=== PATIENT | male | born 1965 | race Caucasian/White ===

== ENCOUNTER → 2016-11-13 | Outpatient (CLI) | payer BC ==
[~2016-11-13] MED LIST: GADAVIST IV PRN; OMEG10007 PO; OXYC15TA89 PO; [UNRECOGNIZED DRUG - CODE] PO
--- NOTE | 2016-11-13 09:37 | DIAGNOSTIC IMAGING REPORT ---
MRI OF THE BRAIN WITHOUT AND WITH IV CONTRAST CLINICAL HISTORY: LUNG CA, HX OF BRAIN METS COMPARISON STUDY: 12/17/2013 TECHNIQUE: MRI of the brain was performed from the vertex to the skull base utilizing various T1 and T2 weighted sequences. Following the IV administration of 8 mL of Gadavist contrast, additional enhanced images were obtained. FINDINGS: Sagittal T1, axial diffusion, proton density and T2 weighted axial, coronal FLAIR, and pre and post axial T1-weighted images were acquired. These were supplemented with post gadolinium coronal T1 weighted images. Axial diffusion-weighted images reveal no evidence of acute or subacute infarction. There is no evidence of ventricular dilatation. Proton density T2-weighted and FLAIR images reveal there is been interval resolution of the focus of increased FLAIR signal within the left parietal vertex. There are several new foci of increased FLAIR signal. The most prominent is a 5 mm focus within the left occipital lobe. This demonstrates subtle post gadolinium enhancement. This must therefore be viewed as suspicious for a tiny metastatic focus. There is also an additional equivocal punctate focus of enhancement within the left cerebellar hemisphere. There are no abnormal flow voids. IMPRESSION: 1. New 5 mm focus of increased FLAIR signal within the left occipital lobe. This demonstrates post gadolinium enhancement, and therefore must be viewed as suspicious for a tiny metastatic deposit 2. Equivocal 2 mm focus of enhancement within the left cerebellar hemisphere 3. There are several additional foci of increased FLAIR signal within the white matter which are nonspecific. 4. No evidence of acute or subacute infarction 5. No evidence of hydrocephalus. Electronically signed by: Delbert Arvizu M.D. 11/13/2016 9:35 AM Dictated Date/Time: 11/13/2016 9:20 AM
== END | disposition home or self-care (01) ==
LOC: C.MRI 08:24
PROVIDERS: ATTEND Internal Medicine Hematology & Oncology
DX: C34.90 Malignant neoplasm of unspecified part of unspecified bronchus or lung (principal); C79.31 Secondary malignant neoplasm of brain; R90.82 White matter disease, unspecified

== ENCOUNTER 2017-09-01 03:27 | Inpatient (IN) | payer OTHER, BC ==
[~2017-09-01] VITALS: Ht 172.7 cm; Wt 79.9 kg
[~2017-09-01 03:27] MED LIST changes: -GADAVIST IV PRN
[2017-09-01] MEDS ORDERED: ONDANSETRON INJ 2 MG/ML 2 ML VIAL IV STA (03:43)
[2017-09-01] MEDS ORDERED: SODIUM CHLORIDE 0.9% 1000ML 1,000 ML IV STA (03:43)
[2017-09-01] MEDS ORDERED: HYDROmorphone INJ 1 MG/ML SYR IV STA (03:43)
--- NOTE | 2017-09-01 03:55 | EMERGENCY ROOM VISIT NOTE ---
History Report prepared by Keisha: Lawrence Carrington Under the Supervision of: Dr. Genaro Lucia M.D. First contact with patient: 03:35 Chief Complaint: ABDOMINAL PAIN Stated Complaint: ABDOMEN PAIN History of Present Illness The patient is a 51 year old male who presents to the Emergency Room with complaints of worsening abdominal pain that started five days ago. He rates his discomfort as a 7/10 in severity. The patient reports that he has a history of lung cancer with metastases to his stomach area and liver. He is accompanied by his who states that the patient's last chemotherapy was five days ago. She states that since then he has been feeling ill. The patient states that he has been experiencing abdominal pain and has been constipated. The patient reports that he has also been vomiting. His reports that she believed the patient looked jaundice two days ago. He states that the abdominal pain worsened today, which caused him to report to the ED. He reports that he also has a history of urinary retention, which he had a Tovar catheter placed for. The patient states that his urine has been concentrated for the last week. His states that the patient is also being treated for his history of blood clots in his legs and lungs. The patient states that his legs have been swelling lately, which he has been taking Lovenox for. The patient states that he has recently finished Levaquin for his history of pneumonia. His states that he has been taking Morphine, Oxycodone, Zofran, Ativan, Dexamethasone, and morphine drops. The patient denies a history of kidney stones, falls, injuries, a history of gastric ulcers, and abdominal surgeries. Source of History: patient, spouse/significant other Onset: five days ago Position: abdomen Symptom Intensity: 7/10 Timing: worsening Associated Symptoms: + vomiting, + urinary symptoms Review of Systems See HPI for pertinent positives & negatives. A total of 10 systems reviewed and were otherwise negative. Past Medical & Surgical Medical Problems: (1) Intractable abdominal pain (2) Metastatic lung cancer (metastasis from lung to other site) Family History Patient reports no known family medical history. Social History Smoking Status: Never Smoker Marital Status: Housing Status: lives with family Occupation Status: employed Current/Historical Medications Scheduled Dexamethasone (Decadron), 4 MG PO Q12 Enoxaparin (Lovenox), 80 MG SQ Q12H Morphine Sulfate (Ms Contin), 30 MG PO Q12 Ranitidine Hcl (Zantac), Unknown Dose PO BID Scheduled PRN Lorazepam (Ativan), 0.5 MG PO TID PRN for Nausea Ondansetron Hcl (Zofran), 8 MG PO Q8 PRN for Nausea Oxycodone Ir (Roxicodone Ir), 5 MG PO Q6H PRN for Pain [Morphine Concentrate], 0.25 MG PO Q2H PRN for Pain Allergies Coded Allergies: No Known Allergies (Unverified , 10/11/15) Physical Exam Vital Signs Date Time Temp Pulse Resp B/P (MAP) Pulse Ox O2 Delivery O2 Flow Rate FiO2 09/01/17 06:30 76 13 117/67 92 Nasal Cannula 4.0 09/01/17 06:00 74 14 113/68 94 Nasal Cannula 4.0 09/01/17 05:30 79 15 114/71 94 Nasal Cannula 4.0 09/01/17 05:00 86 19 120/70 95 Nasal Cannula 4.0 09/01/17 04:30 88 16 120/70 95 Nasal Cannula 4.0 09/01/17 04:28 87 17 122/69 94 Nasal Cannula 4.0 09/01/17 03:30 36.5 92 24 120/78 95 Nasal Cannula 4.0 Physical Exam GENERAL: Patient is uncomfortable appearing, malnourished, and in moderate distress. HEENT: No acute trauma, normocephalic atraumatic, mucous membranes moist, no nasal congestion, no scleral icterus. NECK: No stridor, no adenopathy, no meningismus, trachea is midline. LUNGS: No dyspnea. Clear to auscultation and equal bilaterally. No wheeze, no rhonchi. HEART: Regular rate and rhythm. No murmurs, rubs, gallops appreciated. ABDOMEN: Mild abdominal distention, hypoactive bowel sounds, diffuse mild tenderness to all areas. no masses appreciated, no peritonitis. Tovar in place with dark concentrated urine. BACK: No midline tenderness, no CVA tenderness EXTREMITIES: Normal motion all extremities, no cyanosis, bilateral leg swelling and edema. NEUROLOGIC: Alert and oriented, no acute motor or sensory deficits, no focal weakness, cranial nerves grossly intact. SKIN: No rash, no jaundice, no diaphoresis. Medical Decision & Procedures ER Provider Diagnostic Interpretation: Radiology results and stated below per my review and radiologist interpretation: CT ABDOMEN & PELVIS with Contrast: There is study from October 05, 2016 without a prior report. Trace pleural fluid, right great than left. Atelectasis and/or infiltrate. Septal thickening and ground-glass opacity. Correlate for edema. Lung nodules. Innumerable hypodense liver lesions compatible with metastatic disease not seen on the previous. Adenopathy. Small amount of free fluid and body wall edema. Gallbladder appears thick walled though this could be related to periportal edema. No calcified gallstones are seen. Moderate stool burden. Correlate for constipation. No bowel obstruction. The visualized appendix appears unremarkable. Ascites limits evaluation for localized inflammatory process. Recommend and correlation pancreatic enzymes and other labs. Radiologist: Cole Collier M.D. Laboratory Results 09/01/17 03:46 Red Blood Count 4.17, Mean Corpuscular Volume 83.5, Mean Corpuscular Hemoglobin 28.1, Mean Corpuscular Hemoglobin Concent 33.6, Mean Platelet Volume 10.2, Neutrophils (%) (Auto) 84.7, Lymphocytes (%) (Auto) 7.2, Monocytes (%) (Auto) 7.3, Eosinophils (%) (Auto) 0.4, Basophils (%) (Auto) 0.1, Neutrophils # (Auto) 11.67, Lymphocytes # (Auto) 0.99, Monocytes # (Auto) 1.01, Eosinophils # (Auto) 0.05, Basophils # (Auto) 0.01 09/01/17 03:46 Test 09/01/17 00:00 09/01/17 03:46 09/01/17 03:56 09/01/17 04:00 Urine Color DK YELLOW Urine Appearance CLEAR (CLEAR) Urine pH 5.5 (4.5-7.5) Urine Specific [place] 1.045 (1.000-1.030) Urine Protein NEG (NEG) Urine Glucose (UA) NEG (NEG) Urine Ketones NEG (NEG) Urine Occult Blood TRACE (NEG) Urine Nitrite NEG (NEG) Urine Bilirubin NEG (NEG) Urine Urobilinogen POS (NEG) Urine Leukocyte Esterase NEG (NEG) Urine WBC (Auto) 1-5 /hpf (0-5) Urine RBC (Auto) 0-4 /hpf (0-4) Urine Hyaline Casts (Auto) 1-5 /lpf (0-5) Urine Epithelial Cells (Auto) 5-10 /lpf (0-5) Urine Bacteria (Auto) NEG (NEG) White Blood Count 13.77 K/uL (4.8-10.8) Red Blood Count 4.17 M/uL (4.7-6.1) Hemoglobin 11.7 g/dL (14.0-18.0) Hematocrit 34.8 % (42-52) Mean Corpuscular Volume 83.5 fL (80-100) Mean Corpuscular Hemoglobin 28.1 pg (25-34) Mean Corpuscular Hemoglobin Concent 33.6 g/dl (32-36) Platelet Count 185 K/uL (130-400) Mean Platelet Volume 10.2 fL (7.4-10.4) Neutrophils (%) (Auto) 84.7 % Lymphocytes (%) (Auto) 7.2 % Monocytes (%) (Auto) 7.3 % Eosinophils (%) (Auto) 0.4 % Basophils (%) (Auto) 0.1 % Neutrophils # (Auto) 11.67 K/uL (1.4-6.5) Lymphocytes # (Auto) 0.99 K/uL (1.2-3.4) Monocytes # (Auto) 1.01 K/uL (0.11-0.59) Eosinophils # (Auto) 0.05 K/uL (0-0.5) Basophils # (Auto) 0.01 K/uL (0-0.2) RDW Standard Deviation 41.8 fL (36.4-46.3) RDW Coefficient of Variation 13.8 % (11.5-14.5) Immature Granulocyte % (Auto) 0.3 % Immature Granulocyte # (Auto) 0.04 K/uL (0.00-0.02) Prothrombin Time 12.0 SECONDS (9.0-12.0) Prothromb Time International Ratio 1.1 (0.9-1.1) Activated Partial Thromboplast Time 29.4 SECONDS (21.0-31.0) Partial Thromboplastin Ratio 1.1 Est Creatinine Clear Calc Drug Dose 98.3 ml/min Estimated GFR () 116.1 Estimated GFR (Non- 100.2 BUN/Creatinine Ratio 21.8 (10-20) Calcium Level 8.6 mg/dl (8.5-10.1) Magnesium Level 2.4 mg/dl (1.8-2.4) Total Bilirubin 0.7 mg/dl (0.2-1) Direct Bilirubin 0.4 mg/dl (0-0.2) Aspartate Amino Transf (AST/SGOT) 116 U/L (15-37) Alanine Aminotransferase (ALT/SGPT) 132 U/L (12-78) Alkaline Phosphatase 556 U/L (45-117) Total Creatine Kinase 20 U/L (39-308) Total Protein 7.0 gm/dl (6.4-8.2) Albumin 2.4 gm/dl (3.4-5.0) Lipase 105 U/L (73-393) Bedside Lactic Acid Venous 2.06 mmol/L (0.90-1.70) Bedside Hemoglobin 11.6 g/dl (14.0-18.0) Bedside Hematocrit 34 % (42-52) Bedside Sodium 133 mEq/L (135-144) Bedside Potassium 3.8 mEq/L (3.3-5.0) Bedside Chloride 92 mEq/L (101-112) Bedside Total CO2 29 mEq/l (24-31) Anion Gap 16.0 mmol/L (16-25) Bedside Blood Urea Nitrogen 16 mg/dl (7-18) Bedside Creatinine 0.8 mg/dl (0.6-1.3) Bedside Glucose (other) 147 mg/dl (70-99) Bedside Ionized Calcium (Chen) 1.07 mmol/l (1.12-1.32) Laboratory results as reviewed by me. Medications Administered Medications (Trade) Dose Ordered Sig/[facility] Route Start Time Stop Time Status Last Admin Dose Admin Sodium Chloride 1,000 ml @ 999 mls/hr Q1H1M STAT IV 09/01/17 03:43 09/01/17 04:43 DC 09/01/17 03:51 999 MLS/HR Hydromorphone HCl (Dilaudid Inj) 1 mg NOW STAT IV 09/01/17 03:43 09/01/17 03:44 DC 09/01/17 03:59 1 MG Ondansetron HCl (Zofran Inj) 4 mg NOW STAT IV 09/01/17 03:43 09/01/17 03:44 DC 09/01/17 03:58 4 MG ED Course 0336: The patient was evaluated in room A03. A complete history and physical exam was performed. 0343: Ordered Zofran Injection 4 mg Iv, Dilaudid Injection 1 mg IV, Sodium Chloride 1000 ml @ 999 mls/hr IV. 0037:I reevaluated the patient and he is feeling better after medication. 0531: I reevaluated the patient and he reports that he is severely weak. I discussed coming in for better care of fluid overload issues and he agrees. The patient will be further evaluated. 0534: I discussed the patient's case with Dr. Montes, [facility] Hospitalist. He understands the patient's condition and agrees to accept the patient. The patient will be further evaluated. Medical Decision Differential: Bowel Perforation, Cancer Relate Pain, Electrolyte disorder, Dehydration, Sepsis, Ischemic Bowel, Appendicitis, PUD/Gastritis, Biliary Pathology, UTI, Pyelonephritis, Renal Colic, Bowel Obstruction, Aortic Pathology , amongst other pathologies entertained. Pleasant 51 yr old male arrives in quite some distress for evaluation fo diffuse abdominal pain. Patient with known lung CA with mets to brain/liver. 30 day trial chemo at [facility] without success and towards end with DVTs/PEs and Pneumonia. Finished Levaquin for PNA 2 days ago and is currently on lovenox shots. He started different med 1 week ago at [place] with resulted severe vomiting , and increasing abdominal pains. Arrives with significant worsening of pain over night. He is ill appearing and malnurished and clearly uncomfortable. Already trying many PO meds at home without improvement. With Phenergan/ Dilaudid IV here is is feeling somewhat improved but still signficiant weakness and difficulty sitting up, let alone ambulating. CT abdo pelvis as above. Abdominal exam is improved with meds here. He is not doing well as outpatient and I fear that is dicharged he will likely return in signifciantly worse shape. Reviewed at length findings with patient and his , and even showed them CT images themselves. Medication Reconcilliation Current Medication List: was personally reviewed by me Blood Pressure Screening Patient's blood pressure: Normal blood pressure Consults Time Called: 05 Consulting Physician: Dr. Montes, [facility] Hospitalist Returned Call: 05 I discussed the patient's case with Dr. Montes, [facility] Hospitalist. He understands the patient's condition and agrees to accept the patient. The patient will be further evaluated. Impression Primary Impression: Anasarca Additional Impressions: Pain, cancer Liver metastases Constipation Malnutrition Scribe Attestation The scribe's documentation has been prepared under my direction and personally reviewed by me in its entirety. I confirm that the note above accurately reflects all work, treatment, procedures, and medical decision making performed by me. Departure Information Dispostion Being Evaluated By Hospitalist Referrals Alexia LoydD.OJudith (PCP) Patient Instructions My [facility] Problem Qualifiers
[2017-09-01] MEDS ORDERED: OPTIRAY 320 IV PRN (04:00)
[2017-09-01 04:01] LABS: BASO % 0.1 %; BASO ABS # 0.01 K/uL (0-0.2); COMPLETE YES; EOS % 0.4 %; HEMATOCRIT 34.8 % (42-52); IG% 0.3 %; LYMPH % 7.2 %; LYMPH ABS # 0.99 K/uL (1.2-3.4); MEAN CELL VOLUME 83.5 fL (80-100); MEAN CORPUSCULAR HEMOGLOBIN 28.1 pg (25-34); MEAN CORPUSCULAR HGB CONC 33.6 g/dl (32-36); MEAN PLATELET VOLUME 10.2 fL (7.4-10.4); MONO % 7.3 %; NEUT % 84.7 %; PLATELET COUNT 185 K/uL (130-400); RED BLOOD COUNT 4.17 M/uL (4.7-6.1); WHITE BLOOD COUNT 13.77 K/uL (4.8-10.8)
[2017-09-01 04:13] LABS: ISTAT CREATININE 0.8 mg/dl (0.6-1.3); ISTAT HEMOGLOBIN 11.6 g/dl (14.0-18.0); ISTAT IONIZED CALCIUM 1.07 mmol/l (1.12-1.32)
[2017-09-01 04:19] LABS: BUN/CREATININE RATIO 21.8 (10-20); CALCIUM 8.6 mg/dl (8.5-10.1); CREATININE 0.85 mg/dl (0.60-1.40); INR 1.1 (0.9-1.1); PARTIAL THROMBOPLASTIN RATIO 1.1; POTASSIUM 3.7 mmol/L (3.5-5.1)
[2017-09-01 04:37] LABS: MAGNESIUM 2.4 mg/dl (1.8-2.4)
[2017-09-01] MEDS ORDERED: OXYC1TAB3 PO (05:11)
[2017-09-01] MEDS ORDERED: MORP-158 PO (05:14)
[2017-09-01] MEDS ORDERED: ONDA8TAB6 PO (05:16)
[2017-09-01] MEDS ORDERED: LORA-741 PO (05:17)
[2017-09-01] MEDS ORDERED: DXM/4 PO (05:18)
[2017-09-01] MEDS ORDERED: ENOX80IN SQ (05:20)
[2017-09-01] MEDS ORDERED: [UNRECOGNIZED DRUG - CODE] (05:25)
[2017-09-01] MEDS ORDERED: MORPHINE CONCENTRATE PO (05:34)
[2017-09-01] MEDS ORDERED: ZNT/150 PO (05:36)
[2017-09-01 05:45] LABS: URINE APPEARANCE CLEAR (CLEAR); URINE COLOR DK YELLOW; URINE NITRITE NEG (NEG); URINE PH 5.5 (4.5-7.5); URINE SPECIFIC GRAVITY 1.045 (1.000-1.030); UROBILINOGEN POS (NEG); ZZUR CULT IF INDIC CLEAN CATCH NO
[2017-09-01 05:48] LABS: MANUAL MICROSCOPIC REQUIRED? NO; REVIEW REQ? NO; URINE BILIRUBIN NEG (NEG)
[2017-09-01] MEDS ORDERED: ONDANSETRON 8 MG TAB PO PRN (06:00)
[2017-09-01] MEDS ORDERED: OXYCODONE HCL IR 5 MG TAB (IMMEDIATE RELEASE) PO PRN (06:00)
[2017-09-01] MEDS ORDERED: ALUMINUM/MAGNESIUM/SIMETH (MAALOX MAX) 30 ML UDC PO PRN (06:30)
[2017-09-01] MEDS ORDERED: MAGNESIUM HYDROXIDE SUSP 30 ML UDC PO PRN (06:30)
[2017-09-01] MEDS ORDERED: ACETAMINOPHEN 325 MG TAB PO PRN (06:30)
[2017-09-01] MEDS ORDERED: ALBUT/IPRATROP 3MG/0.5MG NEB 3 ML VIAL INH PRN (06:30)
[2017-09-01] MEDS ORDERED: ONDANSETRON INJ 2 MG/ML 2 ML VIAL IV PRN (06:30)
--- NOTE | 2017-09-01 06:50 | DIAGNOSTIC IMAGING REPORT ---
ABDOMEN AND PELVIS CT WITH IV CONTRAST CT DOSE: 425.93 mGy.cm HISTORY: diffuse abdominal pain, constipation, recent chemo, meta Lung CA TECHNIQUE: Multiaxial CT images of the abdomen and pelvis were performed following the use of intravenous contrast. A dose lowering technique was utilized adhering to the principles of ALARA. COMPARISON STUDY: Abdominal CT 08/25/2016. Outside hospital abdomen and pelvis CT 10/05/2016. There are few small nodules within the lung bases. FINDINGS: Interlobular septal thickening at the lung bases. Partially visualized patchy densities within the lingula and linear densities within the right lower lobe. Trace right pleural effusion. No pneumoperitoneum. No pneumatosis. Small sclerotic foci seen within the lumbar spine consistent with metastatic disease. Dominant focus at T12 measures 11 mm. Extensive hepatic metastatic disease with numerable hepatic lesions. Dominant lesion within the right hepatic lobe measures 9 cm. Diffuse gallbladder wall thickening. The pancreas, spleen, and adrenal glands are unremarkable. No hydronephrosis. There is gastrohepatic and mesenteric lymphadenopathy. This is also consistent with metastatic disease. A few mildly enlarged anterior diaphragmatic lymph nodes. Small amount of ascites. Bladder is decompressed by a Tovar catheter. No bowel wall thickening or obstruction. Normal appendix. IMPRESSION: 1. Extensive metastatic disease as described above most pronounced within the liver. 2. No bowel wall thickening or obstruction. 3. Interlobular septal thickening at the lung bases which may represent pulmonary edema. 4. Trace right pleural effusion. 5. Ascites. 6. Thick-walled gallbladder which may be due to the patient's diffuse edematous state. Electronically signed by: Manohar Rivera M.D. 09/01/2017 6:48 AM Dictated Date/Time: 09/01/2017 6:40 AM
--- NOTE | 2017-09-01 06:57 | History and Physical ---
History & Physical Date & Time of Service: Sep 01, 2017 at 06:31 Chief Complaint: Abdomen Pain Primary Care Physician: Alexia Loyd D.O. History of Present Illness Source: patient 51 y/o M Hx Metastatic lung CA initially diagnosed in 2013, recent b/l DVT/PE, chronic abdominal pain. Recently participated in a drug trial at [facility]. The trial failed and he was advised to start Ketruda which he did one week prior. The pt also completed a course of Levaquin for PNM and due to PEs, PNM and small pleural effusions, he has been requiring 4L 02 continuous over the past 2 weeks. He reports a poor appetite and nausea since starting Ketruda. The pt presents with a chief complaint of persistent abdominal pain which is moderate to severe, wakes him from sleep and is not responding well to his current narcotic regimen. He states that he is having night sweats and a persistent productive cough in addition to hoarseness. Past Medical/Surgical History 1) Metastatic lung cancer - liver metastases- diagnosed 2013 - initially treated with various TKIs, recently in a drug trial with an agent called [id number] at [facility], Started Ketruda one week ago. 2) B/L DVT and PE Family History Patient reports no known family medical history. 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 - managed until recently to maintain an exercise regimen Smoking Status: Never Smoker Marital Status: Occupational Status: employed Immunizations History of Influenza Vaccine: Yes History of Tetanus Vaccine?: Yes History of Pneumococcal: No History of Hepatitis B Vaccine: No Allergies Coded Allergies: No Known Allergies (Unverified , 10/11/15) Home Medications Scheduled Dexamethasone (Decadron), 4 MG PO Q12 Enoxaparin (Lovenox), 80 MG SQ Q12H Morphine Sulfate (Ms Contin), 30 MG PO Q12 Ranitidine Hcl (Zantac), Unknown Dose PO BID Scheduled PRN Lorazepam (Ativan), 0.5 MG PO TID PRN for Nausea Ondansetron Hcl (Zofran), 8 MG PO Q8 PRN for Nausea Oxycodone Ir (Roxicodone Ir), 5 MG PO Q6H PRN for Pain [Morphine Concentrate], 0.25 MG PO Q2H PRN for Pain Review of Systems Constitutional: + sweats, + weakness, + problem reported (Possible fevers ), No fever, No chills ENT: No hearing loss, No unusual epistaxis, No nasal symptoms Respiratory: + cough, + sputum, + shortness of breath, No wheezing Cardiovascular: No chest pain Abdomen: + pain, + nausea, No vomiting Musculoskeletal: No joint pain Genitourinary - Male: No hematuria, No dysuria Neurologic: + weakness, No memory loss Psychiatric: + depression symptoms Endocrine: + fatigue Hematologic / Lymphatic: No abnormal bleeding/bruising Integumentary: No rash Allergic / Immunologic: No environmental allergies Physical Exam Vital Signs Date Time Temp Pulse Resp B/P (MAP) Pulse Ox O2 Delivery O2 Flow Rate FiO2 09/01/17 04:28 87 17 122/69 94 Nasal Cannula 4.0 09/01/17 03:30 36.5 92 24 120/78 95 Nasal Cannula 4.0 General Appearance: WD/WN, + pertinent finding (Pale, middle-aged male - no overt distress) Head: normocephalic Eyes: + pertinent finding (Thrush is present extending to back of throat ) Neck: supple, no JVD Respiratory/Chest: chest non-tender, lungs clear Cardiovascular: regular rate, rhythm, no edema, no gallop, + pertinent finding (Poor air entry at bases ) Abdomen/GI: normal bowel sounds, non tender, soft Back: normal inspection, no CVA tenderness Extremities/Musculoskelatal: no calf tenderness, normal capillary refill, + pedal edema Neurologic/Psych: cyber forensic specialist II-XII nml as tested, no motor/sensory deficits, alert, oriented x 3 Skin: warm/dry, no rash, + pallor Diagnostics Laboratory Results Results Past 24 Hours Test 09/01/17 00:00 09/01/17 03:46 09/01/17 03:56 09/01/17 04:00 Range/Units Urine Color DK YELLOW Urine Appearance CLEAR CLEAR Urine pH 5.5 4.5-7.5 Urine Specific [place] 1.045 1.000-1.030 Urine Protein NEG NEG Urine Glucose (UA) NEG NEG Urine Ketones NEG NEG Urine Occult Blood TRACE NEG Urine Nitrite NEG NEG Urine Bilirubin NEG NEG Urine Urobilinogen POS NEG Urine Leukocyte Esterase NEG NEG Urine WBC (Auto) 1-5 0-5 /hpf Urine RBC (Auto) 0-4 0-4 /hpf Urine Hyaline Casts (Auto) 1-5 0-5 /lpf Urine Epithelial Cells (Auto) 5-10 0-5 /lpf Urine Bacteria (Auto) NEG NEG White Blood Count 13.77 4.8-10.8 K/uL Red Blood Count 4.17 4.7-6.1 M/uL Hemoglobin 11.7 14.0-18.0 g/dL Hematocrit 34.8 42-52 % Mean Corpuscular Volume 83.5 80-100 fL Mean Corpuscular Hemoglobin 28.1 25-34 pg Mean Corpuscular Hemoglobin Concent 33.6 32-36 g/dl Platelet Count 185 130-400 K/uL Mean Platelet Volume 10.2 7.4-10.4 fL Neutrophils (%) (Auto) 84.7 % Lymphocytes (%) (Auto) 7.2 % Monocytes (%) (Auto) 7.3 % Eosinophils (%) (Auto) 0.4 % Basophils (%) (Auto) 0.1 % Neutrophils # (Auto) 11.67 1.4-6.5 K/uL Lymphocytes # (Auto) 0.99 1.2-3.4 K/uL Monocytes # (Auto) 1.01 0.11-0.59 K/uL Eosinophils # (Auto) 0.05 0-0.5 K/uL Basophils # (Auto) 0.01 0-0.2 K/uL RDW Standard Deviation 41.8 36.4-46.3 fL RDW Coefficient of Variation 13.8 11.5-14.5 % Immature Granulocyte % (Auto) 0.3 % Immature Granulocyte # (Auto) 0.04 0.00-0.02 K/uL Prothrombin Time 12.0 9.0-12.0 SECONDS Prothromb Time International Ratio 1.1 0.9-1.1 Activated Partial Thromboplast Time 29.4 21.0-31.0 SECONDS Partial Thromboplastin Ratio 1.1 Sodium Level 131 136-145 mmol/L Potassium Level 3.7 3.5-5.1 mmol/L Chloride Level 95 98-107 mmol/L Carbon Dioxide Level 29 21-32 mmol/L Anion Gap 7.0 16.0 16-25 mmol/L Blood Urea Nitrogen 19 7-18 mg/dl Creatinine 0.85 0.60-1.40 mg/dl Est Creatinine Clear Calc Drug Dose 98.3 ml/min Estimated GFR () 116.1 Estimated GFR (Non- 100.2 BUN/Creatinine Ratio 21.8 10-20 Random Glucose 139 70-99 mg/dl Calcium Level 8.6 8.5-10.1 mg/dl Magnesium Level 2.4 1.8-2.4 mg/dl Total Bilirubin 0.7 0.2-1 mg/dl Direct Bilirubin 0.4 0-0.2 mg/dl Aspartate Amino Transf (AST/SGOT) 116 15-37 U/L Alanine Aminotransferase (ALT/SGPT) 132 12-78 U/L Alkaline Phosphatase 556 45-117 U/L Total Creatine Kinase 20 39-308 U/L Total Protein 7.0 6.4-8.2 gm/dl Albumin 2.4 3.4-5.0 gm/dl Lipase 105 73-393 U/L Bedside Lactic Acid Venous 2.06 0.90-1.70 mmol/L Bedside Hemoglobin 11.6 14.0-18.0 g/dl Bedside Hematocrit 34 42-52 % Bedside Sodium 133 135-144 mEq/L Bedside Potassium 3.8 3.3-5.0 mEq/L Bedside Chloride 92 101-112 mEq/L Bedside Total CO2 29 24-31 mEq/l Bedside Blood Urea Nitrogen 16 7-18 mg/dl Bedside Creatinine 0.8 0.6-1.3 mg/dl Bedside Glucose (other) 147 70-99 mg/dl Bedside Ionized Calcium (Chen) 1.07 1.12-1.32 mmol/l Diagnostic Radiology CT abd: multiple liver mets, pleural effusions, questionable infiltrate in RLL, periportal edema Impression Assessment and Plan 51 y/o M Hx Metastatic lung CA initially diagnosed in 2013, recent b/l DVT/PE, chronic abdominal pain. Recently participated in a drug trial at [facility]. The trial failed and he was advised to start Ketruda which he did one week prior. The pt also completed a course of Levaquin for PNM and due to PEs and PNM has been requiring 4L 02 continuous over the past 2 weeks. He reports a poor appetite and nausea since starting Ketruda. The pt presents with a chief complaint of persistent abdominal pain which is moderate to severe, wakes him from sleep and is not responding well to his current narcotic regimen. He states that he is having night sweats and a persistent productive cough in addition to hoarseness. 1) Intractable pain - we will convert the pt to Fentanyl and PRN Dilaudid presently and consult pain management. He will receive IVF and antiemetics as needed. 2) Recent PEs - he will remain on BID Lovenox and continuous 02 3) Concern for RLL infiltrate - this may be residual - if he displays a fever would consider restarting antibiotics. We will consult ID to advise as he is technically immunocompromised. 4) Met CA - can follow with [facility] upon DC - it is unclear if he will be able to tolerate additional Ketruda as his symptoms may be due to comorbidities rather than a drug reaction. 5) Moderate protein malnutrition - we will provide protein supplements for now. 6) Extensive thrush - placed on Diflucan Full code - BID Lovenox Total time for this admit including review of labs, meds, imaging, records - discussion with pt/spouse and ER attending - 40 min Level of Care Med/Surg Resuscitation Status FULL RESUSCITATION VTE Prophylaxis VTE Risk Assessment Done? Y/N: Yes Risk Level: High Given or contraindicated: Enoxaparin (Lovenox)SQ
[2017-09-01 07:00] VITALS: O2SAT 92; Ht 172.7 cm; Wt 79.9 kg
[2017-09-01] MEDS ORDERED: ONDANSETRON INJ 2 MG/ML 2 ML VIAL ONE (07:01)
[2017-09-01] MEDS ORDERED: FENTANYL 25 MCG/HR TDSY TD SCH (07:15)
[2017-09-01 07:29] VITALS: BP 122/76; PULSE 81; TEMP 36.4; O2SAT 95
[2017-09-01] MEDS ORDERED: POLYETHYLENE (MIRALAX) 17 GM PACK PO PRN (07:30)
[2017-09-01] MEDS: LORAZEPAM 0.5 MG TAB PO PRN (07:37)
[2017-09-01] MEDS: NSS + 20MEQ KCL 1000ML 1,000 ML IV SCH ×2 (07:53→17:01)
[2017-09-01] MEDS ORDERED: MoRPHine SULFATE IR 15 MG TAB (IMMEDIATE RELEASE) PO ONE (08:00)
[2017-09-01] MEDS ORDERED: MoRPHine SULFATE CR 15 MG TAB (MS CONTIN) PO SCH (09:00)
[2017-09-01] MEDS: FLUCONAZOLE 50 MG TAB PO SCH ×2 (10:31→14:45)
[2017-09-01] MEDS: RANITIDINE HCL SYRUP 150 MG/10 ML UDC PO SCH ×2 (10:31→19:44)
[2017-09-01] MEDS: DEXAMETHASONE 4 MG TAB PO SCH ×3 (10:31→19:44)
[2017-09-01] MEDS: ENOXAPARIN 80 MG/0.8 ML SYR SQ SCH ×2 (10:37→19:45)
[2017-09-01 11:16] VITALS: BP 125/79; PULSE 82; TEMP 36.8; O2SAT 92
[2017-09-01] MEDS ORDERED: PROCHLORPERAZINE MALEATE 10 MG TAB PO PRN (11:30)
[2017-09-01] MEDS ORDERED: METOCLOPRAMIDE HCL INJ 5 MG/ML 2 ML VIAL IV PRN (11:30)
[2017-09-01] MEDS: SOD PHOSPHATE/SOD BIPHOSPHATE ENEMA 132 ML BTL PR STA (11:41)
[2017-09-01] MEDS ORDERED: SOD PHOSPHATE/SOD BIPHOSPHATE ENEMA 132 ML BTL PR PRN (11:45)
[2017-09-01] MEDS ORDERED: PROCHLORPERAZINE MALEATE 10 MG TAB IV PRN (11:45)
[2017-09-01] MEDS ORDERED: PROCHLORPERAZINE INJ 10 MG in SYRINGE 8 ML IV PRN (12:00)
--- NOTE | 2017-09-01 12:33 | Oncology Consultation ---
Oncology/Heme Consultation Date of Consultation: Sep 01, 2017. Attending Physician: Tiffany Liang MD Reason for Consultation: Metastatic NSCLC Intractable nausea/vomiting History of Present Illness Mr. Harvey is a 51 year old man with widespread metastatic non-small cell lung cancer. His tumor was positive for ALK rearrangement, so he has been treated with a number of targeted therapies, most recently on a clinical trial at [facility]. He recently came off study due to progressive disease and, earlier this past week, started Keytruda for high PD-L1 expression. [place] [facility] [place] for a pneumonia and bilateral PE/DVTs. He was discharged on Lovenox and a course of Levaquin, which he finished yesterday. He presents with intractable nausea and vomiting that has been progressive over the last week or so. He has had very irregular bowel movements. His last two BMs required Fleets enemas to pass. His last BM was 2 days ago. He has no focal neurologic complaints and apparently had a staging MRI of his brain 2 weeks ago that was negative. His CT here shows copious retained stool and no evidence of a bowel obstruction or gastric outlet obstruction. It also shows widespread hepatic metastases. He has no sick contacts and denies any fevers or viral syndrome symptoms. Past Medical/Surgical History Medical Problems: (1) Anasarca Status: Acute (2) Constipation Status: Acute (3) Failure to thrive Status: Acute (4) Liver metastases Status: Acute (5) Malnutrition Status: Acute (6) Pain, cancer Status: Acute Family History Patient reports no known family medical history. Social History Smoking Status: Never Smoker Marital Status: Housing Status: lives with family Occupation Status: employed Allergies Coded Allergies: No Known Allergies (Unverified , 10/11/15) Home Medications Scheduled Dexamethasone (Decadron), 4 MG PO Q12 Enoxaparin (Lovenox), 80 MG SQ Q12H Morphine Sulfate (Ms Contin), 30 MG PO Q12 Ranitidine Hcl (Zantac), Unknown Dose PO BID Scheduled PRN Lorazepam (Ativan), 0.5 MG PO TID PRN for Nausea Ondansetron Hcl (Zofran), 8 MG PO Q8 PRN for Nausea Oxycodone Ir (Roxicodone Ir), 5 MG PO Q6H PRN for Pain [Morphine Concentrate], 0.25 MG PO Q2H PRN for Pain Current Inpatient Medications Current Inpatient Medications Medications (Trade) Dose Ordered Sig/Valeria Route Start Time Stop Time Status Last Admin Dose Admin Ioversol (Optiray 320) 100 ml UD PRN IV 09/01/17 04:00 09/05/17 03:59 Dexamethasone (Decadron Tab) 4 mg Q12H PO 09/01/17 08:00 10/01/17 07:59 09/01/17 10:31 4 MG Enoxaparin Sodium (Lovenox Inj) 80 mg Q12H SQ 09/01/17 08:00 10/01/17 07:59 09/01/17 10:37 80 MG Lorazepam (Ativan Tab) 0.5 mg TID PRN PO 09/01/17 06:00 10/01/17 05:59 09/01/17 07:37 0.5 MG Ondansetron HCl (Zofran Tab) 8 mg Q8 PRN PO 09/01/17 06:00 10/01/17 05:59 Oxycodone HCl (Roxicodone Immediate Rel Tab) 5 mg Q6H PRN PO 09/01/17 06:00 09/15/17 05:59 Ranitidine HCl (zANTac SYRUP) 150 mg BID PO 09/01/17 08:00 10/01/17 08:59 09/01/17 10:31 150 MG Hydromorphone HCl (Dilaudid Inj) 1 mg Q3H PRN IV 09/01/17 06:00 09/15/17 05:59 Fentanyl (Duragesic Patch) 25 mcg Q3D@0900 TD 09/01/17 07:15 09/15/17 07:14 09/01/17 07:36 25 MCG Potassium Chloride/Sodium Chloride 1,000 ml @ 125 mls/hr Q8H IV 09/01/17 08:00 09/02/17 03:59 09/01/17 07:53 100 MLS/HR Miscellaneous (Fentanyl Patch Remove & Waste) 1 ea Q3D@0859 N/A 09/04/17 08:59 10/04/17 08:58 Miscellaneous Information (Check Fentanyl Patch Placement) 1 ea QS N/A 09/01/17 16:00 10/01/17 15:59 Fluconazole (Diflucan Tab) 150 mg QAM PO 09/01/17 08:00 09/11/17 08:59 09/01/17 10:31 150 MG Acetaminophen (Tylenol Tab) 650 mg Q4H PRN PO 09/01/17 06:30 10/01/17 06:29 Al Hydrox/Mg Hydrox/Simethicone (Maalox Max Susp) 15 ml Q4H PRN PO 09/01/17 06:30 10/01/17 06:29 Magnesium Hydroxide (Milk Of Magnesia Susp) 30 ml Q6H PRN PO 09/01/17 06:30 10/01/17 06:29 Polyethylene (Miralax Powder Packet) 17 gm DAILY PRN PO 09/01/17 07:30 10/01/17 07:29 Ondansetron HCl (Zofran Inj) 4 mg Q6H PRN IV 09/01/17 06:30 10/01/17 06:29 Albuterol/ Ipratropium (Duoneb) 3 ml Q6H PRN INH 09/01/17 06:30 10/01/17 06:29 Metoclopramide HCl (Reglan Inj) 10 mg Q6H PRN IV 09/01/17 11:30 10/01/17 11:29 09/01/17 12:05 10 MG Sodium Biphosphate/ Sodium Phosphate (Fleet Enema) 132 ml DAILY PRN AK 09/01/17 11:45 10/01/17 11:44 Prochlorperazine Edisylate 10 mg/ Syringe 10 ml @ 5 mls/min Q8H PRN IV 09/01/17 12:00 10/01/17 11:59 Bisacodyl (Dulcolax Tab) 10 mg DAILY PO 09/02/17 08:00 10/02/17 07:59 Review of Systems Constitutional: + fatigue, No fever, No chills ENT: No unusual epistaxis Respiratory: No cough, No shortness of breath Cardiovascular: No chest pain Abdomen: + pain, + nausea, + vomiting, + constipation Genitourinary - Male: + urinary retention (has a chronic hunter) Neurologic: No paralysis, No weakness, No vertigo Hematologic / Lymphatic: No abnormal bleeding/bruising Physical Exam Date Time Temp Pulse Resp B/P (MAP) Pulse Ox O2 Delivery O2 Flow Rate FiO2 09/01/17 11:36 Nasal Cannula 4.0 09/01/17 11:16 36.8 82 18 125/79 (94) 92 Nasal Cannula 4.0 09/01/17 07:29 36.4 81 18 122/76 (91) 95 09/01/17 07:00 92 Nasal Cannula 4.0 09/01/17 06:30 76 13 117/67 92 Nasal Cannula 4.0 09/01/17 06:00 74 14 113/68 94 Nasal Cannula 4.0 09/01/17 05:30 79 15 114/71 94 Nasal Cannula 4.0 09/01/17 05:00 86 19 120/70 95 Nasal Cannula 4.0 09/01/17 04:30 88 16 120/70 95 Nasal Cannula 4.0 09/01/17 04:28 87 17 122/69 94 Nasal Cannula 4.0 09/01/17 03:30 36.5 92 24 120/78 95 Nasal Cannula 4.0 General Appearance: WD/WN, + mild distress (due to nausea - vomited shortly before I saw him) Eyes: EOMI, sclerae normal (sclerae anicteric) ENT: + pertinent finding (dry mucous membranes) Respiratory/Chest: + wheezing (scattered in multiple varela) Cardiovascular: regular rate, rhythm Abdomen/GI: non tender, soft, + pertinent finding (hypoactive bowel sounds) Extremities/Musculoskelatal: no pedal edema Neurologic/Psych: no motor/sensory deficits (grossly), alert, oriented x 3 Laboratory Results Last 24 Hours Test 09/01/17 00:00 09/01/17 03:46 09/01/17 03:56 09/01/17 04:00 Urine Color DK YELLOW Urine Appearance CLEAR Urine pH 5.5 Urine Specific [place] 1.045 Urine Protein NEG Urine Glucose (UA) NEG Urine Ketones NEG Urine Occult Blood TRACE Urine Nitrite NEG Urine Bilirubin NEG Urine Urobilinogen POS Urine Leukocyte Esterase NEG Urine WBC (Auto) 1-5 /hpf Urine RBC (Auto) 0-4 /hpf Urine Hyaline Casts (Auto) 1-5 /lpf Urine Epithelial Cells (Auto) 5-10 /lpf Urine Bacteria (Auto) NEG White Blood Count 13.77 K/uL Red Blood Count 4.17 M/uL Hemoglobin 11.7 g/dL Hematocrit 34.8 % Mean Corpuscular Volume 83.5 fL Mean Corpuscular Hemoglobin 28.1 pg Mean Corpuscular Hemoglobin Concent 33.6 g/dl Platelet Count 185 K/uL Mean Platelet Volume 10.2 fL Neutrophils (%) (Auto) 84.7 % Lymphocytes (%) (Auto) 7.2 % Monocytes (%) (Auto) 7.3 % Eosinophils (%) (Auto) 0.4 % Basophils (%) (Auto) 0.1 % Neutrophils # (Auto) 11.67 K/uL Lymphocytes # (Auto) 0.99 K/uL Monocytes # (Auto) 1.01 K/uL Eosinophils # (Auto) 0.05 K/uL Basophils # (Auto) 0.01 K/uL RDW Standard Deviation 41.8 fL RDW Coefficient of Variation 13.8 % Immature Granulocyte % (Auto) 0.3 % Immature Granulocyte # (Auto) 0.04 K/uL Prothrombin Time 12.0 SECONDS Prothromb Time International Ratio 1.1 Activated Partial Thromboplast Time 29.4 SECONDS Partial Thromboplastin Ratio 1.1 Sodium Level 131 mmol/L Potassium Level 3.7 mmol/L Chloride Level 95 mmol/L Carbon Dioxide Level 29 mmol/L Anion Gap 7.0 mmol/L 16.0 mmol/L Blood Urea Nitrogen 19 mg/dl Creatinine 0.85 mg/dl Est Creatinine Clear Calc Drug Dose 98.3 ml/min Estimated GFR () 116.1 Estimated GFR (Non- 100.2 BUN/Creatinine Ratio 21.8 Random Glucose 139 mg/dl Calcium Level 8.6 mg/dl Magnesium Level 2.4 mg/dl Total Bilirubin 0.7 mg/dl Direct Bilirubin 0.4 mg/dl Aspartate Amino Transf (AST/SGOT) 116 U/L Alanine Aminotransferase (ALT/SGPT) 132 U/L Alkaline Phosphatase 556 U/L Total Creatine Kinase 20 U/L Total Protein 7.0 gm/dl Albumin 2.4 gm/dl Lipase 105 U/L Bedside Lactic Acid Venous 2.06 mmol/L Bedside Hemoglobin 11.6 g/dl Bedside Hematocrit 34 % Bedside Sodium 133 mEq/L Bedside Potassium 3.8 mEq/L Bedside Chloride 92 mEq/L Bedside Total CO2 29 mEq/l Bedside Blood Urea Nitrogen 16 mg/dl Bedside Creatinine 0.8 mg/dl Bedside Glucose (other) 147 mg/dl Bedside Ionized Calcium (Hcen) 1.07 mmol/l Assessment & Plan Mr. Harvey is a gentleman known to me who has been recently managed elsewhere for his metastatic NSCLC. He recently came off of a clinical trial due to progression and started Keytruda earlier this week. He presents with intractable nausea and vomiting. He uses Fentanyl and other opiates and has had difficulty with constipation, despite what sounds like a fairly aggressive bowel regimen as an outpatient. His CT reveals copious retained stool but no evidence of a bowel obstruction or gastric outlet obstruction. He also has no symptoms to suggest a gastroenteritis. He had a recent MRI brain that was negative, so I doubt this is ADMINISTRATIVE LIAISON progression. However, if he doesn't improve with laxatives and enemas, we may want to scan his head anyway. Keytruda does not commonly cause nausea and certainly not after just one dose. Overall, I think his nausea and vomiting are related to fecal retention. I would manage him aggressively with enemas and, if needed, mechanical disimpaction. He may also benefit from consultation with palliative care to help balance his opiate needs with his constipation. We could also consider Relistor, though it works very aggressively and does not last long.
--- NOTE | 2017-09-01 12:44 | Hospitalist Progress Note ---
Hospitalist Progress Note Date of Service Sep 01, 2017. (Estelle Huntley PA-C) Subjective Pt evaluation today including: conversation w/ patient, conversation w/ family , physical exam, chart review, lab review The patient was seen and examined this morning. Pt reports still having extreme nausea which is waxing and waning. Lower suprapubic/ RLQ abdominal pain still present and seems to make nausea worse. He attempted eating a few grapes this morning but feels indigestion at this point. Pt is requesting a fleets enema for relief as this has worked for him at home before. He is also requesting an increased rate of fluids for dark urine since he is still unable to drink fluids. ROS: no cp, flutter, palpitation, sob, cough, fever, chills or sweats. 6 point ROS reviewed and otherwise negative. (Estelle Huntley, SCOTTY) Objective Vital Signs Date Time Temp Pulse Resp B/P (MAP) Pulse Ox O2 Delivery O2 Flow Rate FiO2 09/01/17 11:36 Nasal Cannula 4.0 09/01/17 11:16 36.8 82 18 125/79 (94) 92 Nasal Cannula 4.0 09/01/17 07:29 36.4 81 18 122/76 (91) 95 09/01/17 07:00 92 Nasal Cannula 4.0 09/01/17 06:30 76 13 117/67 92 Nasal Cannula 4.0 09/01/17 06:00 74 14 113/68 94 Nasal Cannula 4.0 09/01/17 05:30 79 15 114/71 94 Nasal Cannula 4.0 09/01/17 05:00 86 19 120/70 95 Nasal Cannula 4.0 09/01/17 04:30 88 16 120/70 95 Nasal Cannula 4.0 09/01/17 04:28 87 17 122/69 94 Nasal Cannula 4.0 09/01/17 03:30 36.5 92 24 120/78 95 Nasal Cannula 4.0 (Estelle Huntley, SCOTTY) Physical Exam General Appearance: WD/WN, + moderate distress, + thin Eyes: PERRL, EOMI ENT: hearing grossly normal, + pertinent finding (+ white plaques on tongue and posterior pharynx) Neck: no JVD Respiratory/Chest: lungs clear, no respiratory distress, no accessory muscle use, + pertinent finding (on 4 L via NC) Cardiovascular: no murmur, + tachycardia Abdomen: + pertinent finding (Active bowel sounds, + distended abdomen, + tympanic on percussion, tenderness with light palpation and worsened nausea. Tovar catheter draining dark yellow urine, no evident hematuria) Extremities: non-tender, + pedal edema (1+ nonpitting) Neurologic/Psychiatric: alert, oriented x 3 Skin: normal color, warm/dry (Estelle Huntley, SCOTTY) Laboratory Results Last 24 Hours Test 09/01/17 00:00 09/01/17 03:46 09/01/17 03:56 09/01/17 04:00 Urine Color DK YELLOW Urine Appearance CLEAR Urine pH 5.5 Urine Specific [place] 1.045 Urine Protein NEG Urine Glucose (UA) NEG Urine Ketones NEG Urine Occult Blood TRACE Urine Nitrite NEG Urine Bilirubin NEG Urine Urobilinogen POS Urine Leukocyte Esterase NEG Urine WBC (Auto) 1-5 /hpf Urine RBC (Auto) 0-4 /hpf Urine Hyaline Casts (Auto) 1-5 /lpf Urine Epithelial Cells (Auto) 5-10 /lpf Urine Bacteria (Auto) NEG White Blood Count 13.77 K/uL Red Blood Count 4.17 M/uL Hemoglobin 11.7 g/dL Hematocrit 34.8 % Mean Corpuscular Volume 83.5 fL Mean Corpuscular Hemoglobin 28.1 pg Mean Corpuscular Hemoglobin Concent 33.6 g/dl Platelet Count 185 K/uL Mean Platelet Volume 10.2 fL Neutrophils (%) (Auto) 84.7 % Lymphocytes (%) (Auto) 7.2 % Monocytes (%) (Auto) 7.3 % Eosinophils (%) (Auto) 0.4 % Basophils (%) (Auto) 0.1 % Neutrophils # (Auto) 11.67 K/uL Lymphocytes # (Auto) 0.99 K/uL Monocytes # (Auto) 1.01 K/uL Eosinophils # (Auto) 0.05 K/uL Basophils # (Auto) 0.01 K/uL RDW Standard Deviation 41.8 fL RDW Coefficient of Variation 13.8 % Immature Granulocyte % (Auto) 0.3 % Immature Granulocyte # (Auto) 0.04 K/uL Prothrombin Time 12.0 SECONDS Prothromb Time International Ratio 1.1 Activated Partial Thromboplast Time 29.4 SECONDS Partial Thromboplastin Ratio 1.1 Sodium Level 131 mmol/L Potassium Level 3.7 mmol/L Chloride Level 95 mmol/L Carbon Dioxide Level 29 mmol/L Anion Gap 7.0 mmol/L 16.0 mmol/L Blood Urea Nitrogen 19 mg/dl Creatinine 0.85 mg/dl Est Creatinine Clear Calc Drug Dose 98.3 ml/min Estimated GFR () 116.1 Estimated GFR (Non- 100.2 BUN/Creatinine Ratio 21.8 Random Glucose 139 mg/dl Calcium Level 8.6 mg/dl Magnesium Level 2.4 mg/dl Total Bilirubin 0.7 mg/dl Direct Bilirubin 0.4 mg/dl Aspartate Amino Transf (AST/SGOT) 116 U/L Alanine Aminotransferase (ALT/SGPT) 132 U/L Alkaline Phosphatase 556 U/L Total Creatine Kinase 20 U/L Total Protein 7.0 gm/dl Albumin 2.4 gm/dl Lipase 105 U/L Bedside Lactic Acid Venous 2.06 mmol/L Bedside Hemoglobin 11.6 g/dl Bedside Hematocrit 34 % Bedside Sodium 133 mEq/L Bedside Potassium 3.8 mEq/L Bedside Chloride 92 mEq/L Bedside Total CO2 29 mEq/l Bedside Blood Urea Nitrogen 16 mg/dl Bedside Creatinine 0.8 mg/dl Bedside Glucose (other) 147 mg/dl Bedside Ionized Calcium (Chen) 1.07 mmol/l (Estelle Huntley, SCOTTY) Assessment and Plan 51 y/o M Hx Metastatic lung CA initially diagnosed in 2013, recent b/l DVT/PE, chronic abdominal pain. Recently participated in a drug trial at [facility]. The trial failed and he was advised to start Ketruda which he did one week prior. The pt also completed a course of Levaquin for PNM and due to PEs and PNM has been requiring 4L 02 continuous over the past 2 weeks. He reports a poor appetite and nausea since starting Ketruda. The pt presents with a chief complaint of persistent abdominal pain which is moderate to severe, wakes him from sleep and is not responding well to his current narcotic regimen. He states that he is having night sweats and a persistent productive cough in addition to hoarseness. Metastatic Lung Cx - CT abd/pelvis reviewed and showing extensive mets to liver, thoracic spine T11 and T12, and abdominal mesentary with lymphadenopathy. - Recent drug trial at [facility] - currently on Ketruda - Heme/onc consultation today for further guidance - Follow with [facility] upon DC - it is unclear if he will be able to tolerate additional Ketruda as his symptoms may be due to comorbidities rather than a drug reaction. - Consider palliative consultation pending heme/onc recs. Intractable pain - Started pt on Fentanyl 25 mcg patch and PRN Dilaudid. Continued on morphine sulfate CR 20 mg Q12 - consult pain management Intractable nausea Constipation - Increased NSS to 125ml/hr - Nausea unrelieved with zofran alone, continue ativan 0.5 mg TID prn, added compazine 10 mg IV Q8H prn and reglan 25 mg IV Q6H - Fleets enema prn, dulcolax tabs 10 mg daily and miralax daily for aggressive bowel regimen for stool burden seen on CT. Recent PEs - he will remain on BID Lovenox and continuous 02 at 4 L Concern for RLL infiltrate - this may be residual - if he displays a fever would consider restarting antibiotics. Pt denies respiratory sx currently. No sick contacts. - Consult ID to advise as he is technically immunocompromised. Moderate protein malnutrition -Add protein supplements Oral candidiasis - Likely in esophagus as well dt immunocompromised state - Continue diflucan 150 mg PO tab daily CODE STATUS: Full code DVT ppx: BID Lovenox Disposition: Pt from home, unknown at this time, likely >2 days (Estelle Huntley PA-C) Reviewed: Pt Seen/Exam by Me (Tiffany Liang MD) History Physician Load Builder Supervision Note: I interviewed and examined the patient. Discussed with MAYCO Huntley and agree with findings and plan as documented in the note. Any exceptions or clarifications are listed here: Pt admitted this AM with severe abd pain and N/V. He has significant fecal load on CT scan of abdomen as well as metastatic disease likely both contributing to his pain. Continues to have severe N/V and passing minimal flatus, no BM. Is ready to try enemas. Has been on opioids fo rhis pain. He enrolled in Home Hospice 4 days ago. His Hospice nurse was here and discussed with me about option of placing PICC line for IVFs at home if needed.Pt is agreeable to this. He just wants to feel better and get home. Vitals reviewed Mild distress with nausea RRR no mgr Lungs with crackles at lower and middle lung varela Abd hypoactive BS, +firmness in RUQ over liver, abd mildly distended, otherwise nontender Ext with 1+ edema right leg Pt is an unfortunate 51 yo male with metastatic NSCLC with mets to liver, bone, LNs, here with abdominal pain and intractable N/V likely secondary to opioid- induced constipation. -Milk of molasses enema and then Fleets enema -when can kelly po, continues Miralax, senna -PICC line consent signed and will be done in AM -pt confirms he is a DNR-changed order -plan for dc tomorrow if nausea and constiation improved -Disp to home with Hospice already established, pt undecided about continuing Keytruda at this point and if he does, he would have to withdraw from Hospice Documented By: Tiffany Liang (Tiffany Liang MD)
[2017-09-01] MEDS: POLYETHYLENE (MIRALAX) 17 GM PACK PO SCH (13:45)
[2017-09-01 15:02] VITALS: BP 120/78; PULSE 82; TEMP 37.1; O2SAT 94
[2017-09-01] MEDS: CHECK FENTANYL PATCH PLACEMENT SCH (16:00)
[2017-09-01] MEDS ORDERED: MILK AND MOLASSES ENEMA PR ONE (16:33)
[2017-09-01] MEDS: HYDROmorphone INJ 1 MG/ML SYR IV PRN ×2 (17:09→19:50)
--- NOTE | 2017-09-01 19:31 | Medical Consult ---
Consultation Date of Consultation: Sep 01, 2017. Attending Physician: Tiffany Liang MD Reason for Consultation: May have persistent pneumonia History of Present Illness 51-year-old male with known widely metastatic lung cancer, recently hospitalized at [facility] for pulmonary emboli, DVT, and pneumonia, treated with antibiotics and anticoagulation, now admitted with several days of progressively worsening abdominal pain with nausea and vomiting associated with constipation. Chest x-ray, read by me, shows evidence of pneumonia, certainly consistent with prior infection reported. Patient has not had worsening respiratory symptoms, no fever. Currently on treatment for his lung cancer with Keytruda. Past Medical/Surgical History Medical Problems: (1) Anasarca Status: Acute (2) Constipation Status: Acute (3) Failure to thrive Status: Acute (4) Liver metastases Status: Acute (5) Malnutrition Status: Acute (6) Pain, cancer Status: Acute Medical Problems: (1) Intractable abdominal pain (2) Metastatic lung cancer (metastasis from lung to other site) Family History Patient reports no known family medical history. Social History Smoking Status: Never Smoker Marital Status: Housing Status: lives with family Occupation Status: employed Allergies Coded Allergies: No Known Allergies (Unverified , 10/11/15) Current Inpatient Medications Current Inpatient Medications Medications (Trade) Dose Ordered Sig/Valeria Route Start Time Stop Time Status Last Admin Dose Admin Ioversol (Optiray 320) 100 ml UD PRN IV 09/01/17 04:00 09/05/17 03:59 Dexamethasone (Decadron Tab) 4 mg Q12H PO 09/01/17 08:00 10/01/17 07:59 Enoxaparin Sodium (Lovenox Inj) 80 mg Q12H SQ 09/01/17 08:00 10/01/17 07:59 09/01/17 10:37 80 MG Lorazepam (Ativan Tab) 0.5 mg TID PRN PO 09/01/17 06:00 10/01/17 05:59 09/01/17 07:37 0.5 MG Ondansetron HCl (Zofran Tab) 8 mg Q8 PRN PO 09/01/17 06:00 10/01/17 05:59 Oxycodone HCl (Roxicodone Immediate Rel Tab) 5 mg Q6H PRN PO 09/01/17 06:00 09/15/17 05:59 Ranitidine HCl (zANTac SYRUP) 150 mg BID PO 09/01/17 08:00 10/01/17 08:59 09/01/17 10:31 150 MG Hydromorphone HCl (Dilaudid Inj) 1 mg Q3H PRN IV 09/01/17 06:00 09/15/17 05:59 09/01/17 17:09 1 MG Fentanyl (Duragesic Patch) 25 mcg Q3D@0900 TD 09/01/17 07:15 09/15/17 07:14 09/01/17 07:36 25 MCG Potassium Chloride/Sodium Chloride 1,000 ml @ 125 mls/hr Q8H IV 09/01/17 08:00 09/02/17 03:59 09/01/17 17:01 125 MLS/HR Miscellaneous (Fentanyl Patch Remove & Waste) 1 ea Q3D@0859 N/A 09/04/17 08:59 10/04/17 08:58 Miscellaneous Information (Check Fentanyl Patch Placement) 1 ea QS N/A 09/01/17 16:00 10/01/17 15:59 09/01/17 16:00 1 EA Fluconazole (Diflucan Tab) 150 mg QAM PO 09/01/17 08:00 09/11/17 08:59 Acetaminophen (Tylenol Tab) 650 mg Q4H PRN PO 09/01/17 06:30 10/01/17 06:29 Al Hydrox/Mg Hydrox/Simethicone (Maalox Max Susp) 15 ml Q4H PRN PO 09/01/17 06:30 10/01/17 06:29 Magnesium Hydroxide (Milk Of Magnesia Susp) 30 ml Q6H PRN PO 09/01/17 06:30 10/01/17 06:29 Ondansetron HCl (Zofran Inj) 4 mg Q6H PRN IV 09/01/17 06:30 10/01/17 06:29 Albuterol/ Ipratropium (Duoneb) 3 ml Q6H PRN INH 09/01/17 06:30 10/01/17 06:29 Metoclopramide HCl (Reglan Inj) 10 mg Q6H PRN IV 09/01/17 11:30 10/01/17 11:29 09/01/17 12:05 10 MG Sodium Biphosphate/ Sodium Phosphate (Fleet Enema) 132 ml DAILY PRN [place] 09/01/17 11:45 10/01/17 11:44 Prochlorperazine Edisylate 10 mg/ Syringe 10 ml @ 5 mls/min Q8H PRN IV 09/01/17 12:00 10/01/17 11:59 09/01/17 12:44 5 MLS/MIN Bisacodyl (Dulcolax Tab) 10 mg DAILY PO 09/02/17 08:00 10/02/17 07:59 Polyethylene (Miralax Powder Packet) 17 gm DAILY PO 09/01/17 13:45 10/01/17 07:29 Review of Systems Constitutional: + weakness, No fever Eyes: No problem reported ENT: No problem reported Respiratory: + shortness of breath Cardiovascular: No problem reported Abdomen: + pain, + nausea, + vomiting, + constipation Musculoskeletal: No problem reported Genitourinary - Male: No problem reported Neurologic: No problem reported Psychiatric: No problem reported Endocrine: No problem reported Hematologic / Lymphatic: No problem reported Integumentary: No problem reported Allergic / Immunologic: No problem reported Physical Exam Date Time Temp Pulse Resp B/P (MAP) Pulse Ox O2 Delivery O2 Flow Rate FiO2 09/01/17 15:02 37.1 82 20 120/78 (92) 94 Nasal Cannula 4.0 09/01/17 11:36 Nasal Cannula 4.0 09/01/17 11:16 36.8 82 18 125/79 (94) 92 Nasal Cannula 4.0 09/01/17 07:29 36.4 81 18 122/76 (91) 95 09/01/17 07:00 92 Nasal Cannula 4.0 09/01/17 06:30 76 13 117/67 92 Nasal Cannula 4.0 09/01/17 06:00 74 14 113/68 94 Nasal Cannula 4.0 09/01/17 05:30 79 15 114/71 94 Nasal Cannula 4.0 09/01/17 05:00 86 19 120/70 95 Nasal Cannula 4.0 09/01/17 04:30 88 16 120/70 95 Nasal Cannula 4.0 09/01/17 04:28 87 17 122/69 94 Nasal Cannula 4.0 09/01/17 03:30 36.5 92 24 120/78 95 Nasal Cannula 4.0 General Appearance: no apparent distress, + thin Head: normocephalic, atraumatic Eyes: normal inspection, EOMI, sclerae normal ENT: normal ENT inspection, pharynx normal Neck: supple, no adenopathy, thyroid normal, trachea midline Respiratory/Chest: chest non-tender, no respiratory distress, + wheezing Cardiovascular: regular rate, rhythm, no gallop, no murmur Abdomen/GI: normal bowel sounds, soft, no organomegaly, + tenderness, + distended Genitourinary - Male: + pertinent finding (Tovar draining clear urine) Extremities/Musculoskelatal: no calf tenderness, + pedal edema Neurologic/Psych: alert, oriented x 3 Skin: normal color, warm/dry, no rash Lymphatic: no adenopathy Laboratory Results Last 24 Hours Test 09/01/17 00:00 09/01/17 03:46 09/01/17 03:56 09/01/17 04:00 Urine Color DK YELLOW Urine Appearance CLEAR Urine pH 5.5 Urine Specific [place] 1.045 Urine Protein NEG Urine Glucose (UA) NEG Urine Ketones NEG Urine Occult Blood TRACE Urine Nitrite NEG Urine Bilirubin NEG Urine Urobilinogen POS Urine Leukocyte Esterase NEG Urine WBC (Auto) 1-5 /hpf Urine RBC (Auto) 0-4 /hpf Urine Hyaline Casts (Auto) 1-5 /lpf Urine Epithelial Cells (Auto) 5-10 /lpf Urine Bacteria (Auto) NEG White Blood Count 13.77 K/uL Red Blood Count 4.17 M/uL Hemoglobin 11.7 g/dL Hematocrit 34.8 % Mean Corpuscular Volume 83.5 fL Mean Corpuscular Hemoglobin 28.1 pg Mean Corpuscular Hemoglobin Concent 33.6 g/dl Platelet Count 185 K/uL Mean Platelet Volume 10.2 fL Neutrophils (%) (Auto) 84.7 % Lymphocytes (%) (Auto) 7.2 % Monocytes (%) (Auto) 7.3 % Eosinophils (%) (Auto) 0.4 % Basophils (%) (Auto) 0.1 % Neutrophils # (Auto) 11.67 K/uL Lymphocytes # (Auto) 0.99 K/uL Monocytes # (Auto) 1.01 K/uL Eosinophils # (Auto) 0.05 K/uL Basophils # (Auto) 0.01 K/uL RDW Standard Deviation 41.8 fL RDW Coefficient of Variation 13.8 % Immature Granulocyte % (Auto) 0.3 % Immature Granulocyte # (Auto) 0.04 K/uL Prothrombin Time 12.0 SECONDS Prothromb Time International Ratio 1.1 Activated Partial Thromboplast Time 29.4 SECONDS Partial Thromboplastin Ratio 1.1 Sodium Level 131 mmol/L Potassium Level 3.7 mmol/L Chloride Level 95 mmol/L Carbon Dioxide Level 29 mmol/L Anion Gap 7.0 mmol/L 16.0 mmol/L Blood Urea Nitrogen 19 mg/dl Creatinine 0.85 mg/dl Est Creatinine Clear Calc Drug Dose 98.3 ml/min Estimated GFR () 116.1 Estimated GFR (Non- 100.2 BUN/Creatinine Ratio 21.8 Random Glucose 139 mg/dl Calcium Level 8.6 mg/dl Magnesium Level 2.4 mg/dl Total Bilirubin 0.7 mg/dl Direct Bilirubin 0.4 mg/dl Aspartate Amino Transf (AST/SGOT) 116 U/L Alanine Aminotransferase (ALT/SGPT) 132 U/L Alkaline Phosphatase 556 U/L Total Creatine Kinase 20 U/L Total Protein 7.0 gm/dl Albumin 2.4 gm/dl Lipase 105 U/L Bedside Lactic Acid Venous 2.06 mmol/L Bedside Hemoglobin 11.6 g/dl Bedside Hematocrit 34 % Bedside Sodium 133 mEq/L Bedside Potassium 3.8 mEq/L Bedside Chloride 92 mEq/L Bedside Total CO2 29 mEq/l Bedside Blood Urea Nitrogen 16 mg/dl Bedside Creatinine 0.8 mg/dl Bedside Glucose (other) 147 mg/dl Bedside Ionized Calcium (Chen) 1.07 mmol/l Patient Name: THANH CABRAL Unit Number: [id number] Dictated: 09/01/17639 Transcribed: 09/01/17639 [employer] Printed Date/Time: [~ rep prt dt]/[~ rep prt tm] [~ rep ct labl] - [~ rep ct ivnm] [facility] [place] [address] Dictated: 09/01/17639 Transcribed: 09/01/17639 [employer] Print[employer] Date/Time: [~ rep prt dt]/[~ rep prt tm] [~ rep ct labl] - [~ rep ct ivnm] ABDOMEN AND PELVIS CT WITH IV CONTRAST CT DOSE: 425.93 mGy.cm HISTORY: diffuse abdominal pain, constipation, recent chemo, meta Lung CA TECHNIQUE: Multiaxial CT images of the abdomen and pelvis were performed following the use of intravenous contrast. A dose lowering technique was utilized adhering to the principles of ALARA. COMPARISON STUDY: Abdominal CT 08/25/2016. Outside hospital abdomen and pelvis CT 10/05/2016. There are few small nodules within the lung bases. FINDINGS: Interlobular septal thickening at the lung bases. Partially visualized patchy densities within the lingula and linear densities within the right lower lobe. Trace right pleural effusion. No pneumoperitoneum. No pneumatosis. Small sclerotic foci seen within the lumbar spine consistent with metastatic disease. Dominant focus at T12 measures 11 mm. Extensive hepatic metastatic disease with numerable hepatic lesions. Dominant lesion within the right hepatic lobe measures 9 cm. Diffuse gallbladder wall thickening. The pancreas, spleen, and adrenal glands are unremarkable. No hydronephrosis. There is gastrohepatic and mesenteric lymphadenopathy. This is also consistent with metastatic disease. A few mildly enlarged anterior diaphragmatic lymph nodes. Small amount of ascites. Bladder is decompressed by a Tovar catheter. No bowel wall thickening or obstruction. Normal appendix. IMPRESSION: 1. Extensive metastatic disease as described above most pronounced within the liver. 2. No bowel wall thickening or obstruction. 3. Interlobular septal thickening at the lung bases which may represent pulmonary edema. 4. Trace right pleural effusion. 5. Ascites. 6. Thick-walled gallbladder which may be due to the patient's diffuse edematous state. Electronically signed by: Manohar Rivera M.D. 09/01/2017 6:48 AM Dictated Date/Time: 09/01/2017 6:40 AM The status of this report is Signed. Draft = Not yet reviewed or approved by Radiologist. Signed = Reviewed and approved by Radiologist. <AttendingPhy></AttendingPhy> <FamilyPhy>Alexia Loyd D.O.</FamilyPhy> < PrimaryPhy>Alexia Loyd D.O.</PrimaryPhy> <UnitNumber>[id number]</ UnitNumber> <VisitNumber>[id number]</VisitNumber> <PatientName>DARCYFLORIDALMATHANH</ PatientName> <DateOfBirth>1965</DateOfBirth> <Location>[facility]</Location> < ServiceDate>09/01/17</ServiceDate> <MNE>ESINDI</MNE> <OrderingPhy>Genaro Lucia M.D.</OrderingPhy> <OrderingPhyMNE>f rep ord dr truong</OrderingPhyMNE> < DictatingPhyMNE>f rep dict dr truong</DictatingPhyMNE> <CCListMNE>f rep ct mne</ CCListMNE> <AdmittingPhyMNE>f pt admit dr truong</AdmittingPhyMNE> <AttendingPhyMNE >f pt attend dr truong</AttendingPhyMNE> <ConsultingPhyMNE>f pt consult dr truong</ConsultingPhyMNE> <FamilyPhyMNE>f pt fam dr truong</FamilyPhyMNE> <OtherPhyMNE>f pt other dr truong</OtherPhyMNE> < PrimaryPhyMNE>f pt prim care dr truong</PrimaryPhyMNE> <ReferringPhyMNE>f pt referring dr truong</ReferringPhyMNE> Assessment & Plan 51-year-old male with widely metastatic lung cancer, failing chemotherapy, now status post dose of Keytruda with development of severe abdominal pain, constipation, without obvious evidence of new pulmonary infection. No obvious new active infectious process, would continue to follow closely, at risk for infection given prior chemotherapy. Will continue to follow.
[2017-09-01 20:00] VITALS: BP 129/81; PULSE 85; TEMP 37; O2SAT 95
[2017-09-02] MEDS: NSS + 20MEQ KCL 1000ML 1,000 ML IV SCH (00:42)
[2017-09-02] MEDS: HYDROmorphone INJ 1 MG/ML SYR IV PRN ×4 (01:33→10:52)
[2017-09-02 01:36] VITALS: BP 131/83; PULSE 95; TEMP 36.5; O2SAT 92
[2017-09-02 07:42] VITALS: BP 131/82; PULSE 85; TEMP 36.9; O2SAT 91
[2017-09-02] MEDS: LORAZEPAM 0.5 MG TAB PO PRN (07:47)
[2017-09-02] MEDS: CHECK FENTANYL PATCH PLACEMENT SCH ×2 (07:49)
[2017-09-02] MEDS ORDERED: BISACODYL 5 MG TABEC PO SCH (08:00)
[2017-09-02] MEDS ORDERED: HYDROmorphone INJ 1 MG/ML SYR IV ONE (09:30)
[2017-09-02] MEDS ORDERED: NURSING VERBAL MED ORDER ONE ×2 (09:30→10:15)
[2017-09-02] MEDS ORDERED: SOD PHOSPHATE/SOD BIPHOSPHATE ENEMA 132 ML BTL PR ONE (10:30)
[2017-09-02] MEDS ORDERED: NYSS/ PO (10:31)
[2017-09-02] MEDS ORDERED: [UNRECOGNIZED DRUG - CODE] PO ×2 (10:31→10:47)
[2017-09-02] MEDS ORDERED: MORP-158 PO ×2 (10:31→10:47)
[2017-09-02] MEDS ORDERED: ONDA8TAB6 PO (10:31)
[2017-09-02] MEDS ORDERED: DLC5 PO (10:31)
[2017-09-02] MEDS ORDERED: DFL50 PO (10:31)
[2017-09-02] MEDS ORDERED: MRLP17 PO (10:31)
[2017-09-02] MEDS ORDERED: MOMLX PO (10:31)
[2017-09-02] MEDS ORDERED: OXYC1TAB3 PO ×2 (10:31→10:47)
[2017-09-02] MEDS ORDERED: FNTTP50 TD ×2 (10:31→10:47)
--- NOTE | 2017-09-02 10:45 | Discharge Instructions ---
Discharge Instructions Date of Service Sep 02, 2017. Admission Reason for Admission: Intractable Abdominal Pain Discharge Discharge Diagnosis / Problem: Intractable abdominal pain, nausea Discharge Goals Goal(s): Decrease discomfort, Improve function, Increase independence, Improve disease control Activity Recommendations Activity Limitations: resume your previous activity Lifting Limitations: no more than 25 pounds Exercise/Sports Limitations: as tolerated May Resume Sexual Activity: when tolerated Shower/Bathe: no limitations (with assistance) Driving or Machine Use: Do Not Drive . Instructions / Follow-Up Instructions / Follow-Up You were admitted to [facility] with Intractable abdominal pain and nausea secondary to large stool burden and metastasis of lung cancer to multiple sites in the setting of narcotic medication use. During your stay here you were treated with supportive care including an aggressive bowel regimen, anti-nausea medications and pain medications. Pain medications including fentanyl patch and morphine sulfate concentrated solution doses have changed. 5 Imaging studies which were completed include CT abd/pelvis, and were abnormal. The results showed extensive metastatic disease as described above most pronounced within the liver. There was no bowel wall thickening or obstruction. There was some ascites (fluid) in the abdomen. Discussion was held regarding therapeutic paracentesis (drainage of fluid off from the abdomen) - please discuss this with hospice nursing and physician if pain worsens or abdomen becomes more distended. Risks and benefits were discussed at bedside with you and your family. Oral fungal infection is due to your immunocompromised state. Continue to take medication as listed below to help improve your ability to take in fluids/food by mouth. Fluids: Intravenous fluids can be administered through the PICC line as needed per hospice. This PICC line was placed on 09/02/17. Medications: Continue taking all your medications as prescribed. Fentanyl patch has been increased from 25 mg to 50 mg. Morphine sulfate concentrate has been increased from 0.25 ml to 0.5 ml and may be used every 1 hour as needed for severe pain. Continue aggressive bowel regimen with dulcolax tablets, miralax and enemas as needed for bowel movements. Diflucan is an antifungal which has been prescribed for oral fungal infection - please continue taking 150 mg daily x 12 more days to complete a 14 day course. Nystatin is an antifungal also for oral fungal infection in case you are unable to take the pill form. This should be swished in the mouth 4x daily and swallowed to coat your esophagus. Follow up: Follow with hospice agency later today and as needed. Current Hospital Diet Patient's current hospital diet: Regular Diet Discharge Diet Recommended Diet: Regular Diet Procedures Procedures Performed: None Pending Studies Studies pending at discharge: no Medical Emergencies . Who to Call and When: Medical Emergencies: If at any time you feel your situation is an emergency, please call 911 immediately. . Non-Emergent Contact Non-Emergency issues call your: Primary Care Provider (Hospice physician) . Past History Medical & Surgical History: (1) Metastatic lung cancer (metastasis from lung to other site) (2) Liver metastases (3) Intractable abdominal pain (4) Constipation (5) Malnutrition (6) Hx of pulmonary embolus . "Provider Documentation" section prepared by Tania Huntley. . VTE Core Measure Inpt VTE Proph given/why not?: Enoxaparin (Lovenox)SQ [place] Drug Monitoring Program Search Results: no issues identified
[2017-09-02] MEDS: RANITIDINE HCL SYRUP 150 MG/10 ML UDC PO SCH (10:47)
[2017-09-02] MEDS ORDERED: LORA-741 PO (10:47)
[2017-09-02] MEDS: POLYETHYLENE (MIRALAX) 17 GM PACK PO SCH (10:47)
[2017-09-02] MEDS: ENOXAPARIN 80 MG/0.8 ML SYR SQ SCH (10:47)
[2017-09-02] MEDS: FLUCONAZOLE 50 MG TAB PO SCH (10:48)
[2017-09-02] MEDS: DEXAMETHASONE 4 MG TAB PO SCH (10:48)
--- NOTE | 2017-09-02 10:52 | Discharge Summary ---
Discharge Summary Date of Service Sep 02, 2017. Discharge Summary Admission Date: Sep 01, 2017 at 06:27 Discharge Date: Sep 02, 2017 Discharge Disposition: Home (with hospice) Principal Diagnosis: Intractable abdominal pain, nausea, in setting of metastatic lung cx Problems/Secondary Diagnoses: Metastatic lung CA initially diagnosed in 2013 recent b/l DVT/PE on lovenox chronic abdominal pain Moderate protein malnutrition Oral candidiasis Immunizations: Have You Had Influenza Vaccine: Yes History of Tetanus Vaccine?: Yes History of Pneumococcal: No History of Hepatitis B Vaccine: No Procedures: ABDOMEN AND PELVIS CT WITH IV CONTRAST CT DOSE: 425.93 mGy.cm HISTORY: diffuse abdominal pain, constipation, recent chemo, meta Lung CA TECHNIQUE: Multiaxial CT images of the abdomen and pelvis were performed following the use of intravenous contrast. A dose lowering technique was utilized adhering to the principles of ALARA. COMPARISON STUDY: Abdominal CT 08/25/2016. Outside hospital abdomen and pelvis CT 10/05/2016. There are few small nodules within the lung bases. FINDINGS: Interlobular septal thickening at the lung bases. Partially visualized patchy densities within the lingula and linear densities within the right lower lobe. Trace right pleural effusion. No pneumoperitoneum. No pneumatosis. Small sclerotic foci seen within the lumbar spine consistent with metastatic disease. Dominant focus at T12 measures 11 mm. Extensive hepatic metastatic disease with numerable hepatic lesions. Dominant lesion within the right hepatic lobe measures 9 cm. Diffuse gallbladder wall thickening. The pancreas, spleen, and adrenal glands are unremarkable. No hydronephrosis. There is gastrohepatic and mesenteric lymphadenopathy. This is also consistent with metastatic disease. A few mildly enlarged anterior diaphragmatic lymph nodes. Small amount of ascites. Bladder is decompressed by a Tovar catheter. No bowel wall thickening or obstruction. Normal appendix. IMPRESSION: 1. Extensive metastatic disease as described above most pronounced within the liver. 2. No bowel wall thickening or obstruction. 3. Interlobular septal thickening at the lung bases which may represent pulmonary edema. 4. Trace right pleural effusion. 5. Ascites. 6. Thick-walled gallbladder which may be due to the patient's diffuse edematous state. Electronically signed by: Manohar Rivera M.D. 09/01/2017 6:48 AM Dictated Date/Time: 09/01/2017 6:40 AM The status of this report is Signed. Consultations: Heme/Onc Infectious disease Pain management Medication Reconciliation New Medications: Nystatin (Nystatin Suspension) 1 Ml Susp 5 ML PO QID for 14 Days, #285 ML Bisacodyl (Bisacodyl EC) 5 Mg Tabec 10 MG PO DAILY for 30 Days, #60 TAB Fentanyl (Duragesic) 50 Mcg Tdsy 50 MCG TD [id number] for 30 Days, #10 DOSE Fluconazole (Fluconazole) 50 Mg Tab 150 MG PO QAM for 12 Days, #36 TAB Magnesium Hydroxide (Milk of Magnesia) 30 Ml Susp 30 ML PO Q6H PRN for Constipation for 30 Days, #120 DOSE Polyethylene (Miralax) 17 Gm Pow 17 GM PO DAILY for 30 Days, #30 DOSE Continued Medications: Dexamethasone (Decadron) 4 Mg Tab 4 MG PO Q12, TAB Enoxaparin (Lovenox) 80 Mg/0.8 Ml Inj 80 MG SQ Q12H, SYR Lorazepam (Ativan) 0.5 Mg Tab 0.5 MG PO TID PRN for Nausea for 30 Days, #90 TAB (This prescription has been renewed) Morphine Sulfate (Ms Contin) 30 Mg Tab 30 MG PO Q12 for 30 Days, #60 DOSE (This prescription has been renewed) Morphine Sulfate (Morphine Sulfate) 100 Mg/5 Ml Con 0.5 ML PO Q1H PRN for Pain for 14 Days, #2 BTL (This prescription has been renewed) Ondansetron Hcl (Zofran) 8 Mg Tab 8 MG PO Q8 PRN for Nausea for 30 Days, #90 TAB (This prescription has been renewed) Oxycodone Ir (Roxicodone Ir) 5 Mg Tab 5 MG PO Q6H PRN for Pain for 30 Days, #120 DOSE (This prescription has been renewed) Ranitidine Hcl (Zantac) Unknown Strength Tab Unknown Dose PO BID, TAB Discharge Exam The patient was seen and examined this morning with his and mother at bedside. Pt reports still having abdominal pain and distension. He had a milk of molasses enema after the fleets enema yesterday and has loose bowel movements but states his stomach feels full of gas this morning. His nausea is slightly better at this point, and has been tolerating ice chips and sips. He did eat a few small bites of food for dinner last night but nothing this morning. He has not vomited since yesterday. Discussion regarding pain mangement was held - pt notes domid seemed to break through for his pain, and noted that he was having pain even with the regularly scheduled home meds. I increased fentanyl to 50 mcg and increased his home morphine sulfate concentration 100mg/5 mL to 0.5 mL Q1H prn for severe pain. ROS: Constitutional: No fever, sweats or chills Eyes: No diplopia, no worsening or blurred vision ENT: normal hearing, mild sore throat swallowing Respiratory: No cough, sputum, dyspnea at rest or on exertion Cardiovascular: No chest pain, tightness or palpitations Abdomen: See HPI. Musculoskeletal: No joint pain, calf pain, mild peripheral swelling in feet. Neurologic: + generalized weakness, No numbness/tingling or balance problems Skin: No rash or itch Hospital Course History of Present Illness Source: patient 51 y/o M Hx Metastatic lung CA initially diagnosed in 2013, recent b/l DVT/PE, chronic abdominal pain. Recently participated in a drug trial at [facility]. The trial failed and he was advised to start Ketruda which he did one week prior. The pt also completed a course of Levaquin for PNM and due to PEs, PNM and small pleural effusions, he has been requiring 4L 02 continuous over the past 2 weeks. He reports a poor appetite and nausea since starting Ketruda. The pt presents with a chief complaint of persistent abdominal pain which is moderate to severe, wakes him from sleep and is not responding well to his current narcotic regimen. He states that he is having night sweats and a persistent productive cough in addition to hoarseness. Physical Exam Vital Signs Date Time Temp Pulse Resp B/P (MAP) Pulse Ox O2 Delivery O2 Flow Rate FiO2 09/01/17 04:28 87 17 122/69 94 Nasal Cannula 4.0 09/01/17 03:30 36.5 92 24 120/78 95 Nasal Cannula 4.0 General Appearance: WD/WN, + pertinent finding (Pale, middle-aged male - no overt distress) Head: normocephalic Eyes: + pertinent finding (Thrush is present extending to back of throat ) Neck: supple, no JVD Respiratory/Chest: chest non-tender, lungs clear Cardiovascular: regular rate, rhythm, no edema, no gallop, + pertinent finding (Poor air entry at bases ) Abdomen/GI: normal bowel sounds, non tender, soft Back: normal inspection, no CVA tenderness Extremities/Musculoskelatal: no calf tenderness, normal capillary refill, + pedal edema 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 Recently participated in a drug trial at [facility]. The trial failed and he was advised to start Ketruda which he did one week prior. The pt also completed a course of Levaquin for PNM and due to PEs and PNM has been requiring 4L 02 continuous over the past 2 weeks. He reports a poor appetite and nausea since starting Ketruda. The pt presents with a chief complaint of persistent abdominal pain which was severe, wakes him from sleep and is not responding well to his current narcotic regimen. He states that he is having night sweats and a persistent productive cough in addition to hoarseness. Metastatic Lung Cx - CT abd/pelvis reviewed and showing extensive mets to liver, thoracic spine T11 and T12, and abdominal mesentery with lymphadenopathy. - Recent drug trial at [facility] - currently on Ketruda - Heme/onc consultation - appreciate recs - Pt had been started on hospice on 08/29. - Plan to return home with hospice - comfort kit was ordered at pharmacy. New prescriptions for narcotics were provided to the family due to the holiday weekend and possibility of not getting medications tomorrow. - Follow with [facility] upon DC - it is unclear if he will be able to tolerate additional Keytruda as his symptoms may be due to comorbidities rather than a drug reaction. - Extensive hepatic involvement likely causing ascites but ultrasound was not completed due to severe abdominal pain and intractable nausea. - Discussion held regarding therapeutic paracentesis and risks vs benefits. Pt and family can ask hospice to determine if he would have more benefit from this if his status changed once at home. Intractable pain - Increased Fentanyl from 25 to 50 mcg patch. Pt utilized 1 dose of PRN Dilaudid overnight relief but cannot go home with this- so morphine sulfate concentration 100mg/5 mL was increased to 0.5 Q1H PO prn for severe pain. He has utilized this at home before but notes does not have much left, if anything. - Continued on morphine sulfate CR 20 mg Q12 - Continue Oxy IR Q6H prn PO if able to tolerate - consult pain management Intractable nausea Constipation - Increased NSS to 125ml/hr - Nausea unrelieved with zofran alone, continue ativan 0.5 mg TID prn - was improved with this regimen and moving bowels slightly. Hospice can consider use of reglan if felt needed. - Fleets enema prn, dulcolax tabs 10 mg daily and miralax daily for aggressive bowel regimen for stool burden seen on CT. Recent PEs - he will remain on BID Lovenox and continuous 02 at 4 L Concern for RLL infiltrate - likely residual - if he displays a fever would consider restarting antibiotics. Pt denies respiratory sx currently. No sick contacts. - ID did not see pt in the hospital Moderate protein malnutrition -Add protein supplements Oral candidiasis - Likely in esophagus as well dt immunocompromised state - Continue diflucan 150 mg PO tab daily CODE STATUS: Full code DVT ppx: BID Lovenox Disposition: Pt from home, discharge to home today. Total Time Spent: Greater than 30 minutes This includes examination of the patient, discharge planning, medication reconciliation, and communication with other providers. Discharge Instructions Please refer to the electronic Patient Visit Report (Discharge Instructions) for additional information. Follow-Up Follow up with hospice/PCP within 24-48 hours upon arrival home. Additional Copies To Alexia Loyd D.O. Reviewed: Pt Seen/Exam by Me History Pt is stable. Ongoing pain issues that are helped with current regimen. Pt had a bowel movement this AM that was diarrhea s/p MOM enema. No chest pain or SOB. Abd pain has improved. and mother are at bedside and anxious to d/c to home with hospice. Agree with HPI/ROS as noted by PAC General Appearance: WD/WN, no apparent distress Respiratory: normal breath sounds, no respiratory distress Cardiovascular: normal peripheral pulses, regular rate, rhythm Gastrointestinal: soft, distended (very tight), tenderness (diffuse) Extremities: non-tender, no pedal edema Neurologic/Psychiatric: alert, oriented x 3 Skin Characteristics: normal color, warm/dry Assessment/Plan Agree with plan as outlined above Pt with metastatic lung ca with extensive abd mets Likely the cause of constipation Planning for home with hospice services PICC placed 09/02, planning for home IVF as PO intake has been minimal Thrush: fluconazole for 2 weeks total, can switch to nystatin swish and swallow if issues swallowing PO Hospice services in place on d/c
[2017-09-02 11:00] VITALS: BP 131/82; PULSE 85; TEMP 36.9; O2SAT 91
[2017-09-04] MEDS ORDERED: FENTANYL PATCH REMOVE & WASTE SCH (08:59)
== END 2017-09-02 11:46 | disposition hospice, home (50) | DRG 181 ==
LOC: C.EDB 03:27 → C.4E 06:27 → ENRESERV 06:37
PROVIDERS: ADMIT Internal Medicine; ATTEND Family Medicine
PROC: 05HA33Z Insertion of Infusion Device into Left Brachial Vein, Percutaneous Approach (ICD-10-PCS; principal; 2017-09-02)
DX: C34.90 Malignant neoplasm of unspecified part of unspecified bronchus or lung (principal); C78.7 Secondary malignant neoplasm of liver and intrahepatic bile duct; C79.51 Secondary malignant neoplasm of bone; C77.2 Secondary and unspecified malignant neoplasm of intra-abdominal lymph nodes; E44.0 Moderate protein-calorie malnutrition; B37.0 Candidal stomatitis; G89.3 Neoplasm related pain (acute) (chronic); R10.31 Right lower quadrant pain; K59.03 Drug induced constipation; T40.2X5A Adverse effect of other opioids, initial encounter; R11.2 Nausea with vomiting, unspecified; Z68.26 Body mass index [BMI] 26.0-26.9, adult; Z86.711 Personal history of pulmonary embolism; Z86.718 Personal history of other venous thrombosis and embolism; Z87.01 Personal history of pneumonia (recurrent); Z79.01 Long term (current) use of anticoagulants; Z79.52 Long term (current) use of systemic steroids; Z79.891 Long term (current) use of opiate analgesic; Z79.899 Other long term (current) drug therapy